=== PATIENT | female | born 1945 | race Caucasian/White ===

== ENCOUNTER 2022-01-20 09:59 | Day surgery (SDC) | payer OTHER ==
[~2022-01-20] VITALS: Ht 157.5 cm; Wt 129.8 kg
[~2022-01-20 09:59] MED LIST: ALEN10 PO; ASPI81CH; CALCA500CH PO; FLUO.025TO
== END 2022-01-20 12:35 | disposition home or self-care (01) ==
LOC: ORSCSDS 09:59
DX: Z12.11 Encounter for screening for malignant neoplasm of colon (principal); Z86.010 Personal history of colon polyps; Z80.0 Family history of malignant neoplasm of digestive organs; D12.2 Benign neoplasm of ascending colon; D12.4 Benign neoplasm of descending colon; I10 Essential (primary) hypertension; K21.9 Gastro-esophageal reflux disease without esophagitis
CPT/HCPCS: 88305; J2704; J7120

== ENCOUNTER → 2024-12-13 | Outpatient (CLI) | payer MEDICARE | LOC: LAB 13:47 → LAB SHORT 13:47 | DX: R82.998 Other abnormal findings in urine (principal) | CPT/HCPCS: 87086 ==